=== PATIENT | male | born 1990 | race Caucasian/White ===

== ENCOUNTER 2017-05-05 23:00 | Inpatient (IN) | payer OTHER ==
--- NOTE | ~2017-05-05 | PN ---
Unit #: [id number] #: [id number] Patient: ELIUD RIOS [id number] [facility] [address] [place] [address] [id number] MR#: [id number] NAME: ELIUD RIOS ROOM: P122 Age: 26 Sex: M Admission Date: 05/06/2017 : 1990 Attending Physician: Ivette Eddy M.D. Admitting Physician: Ivette Eddy M.D. Primary Care Physician: Primary Care Physician Kiana NAVARRO NOTES DATE OF SERVICE 05/07/2017 DISCUSSION Mr. Rios is a 26-year-old white male who was seen today. Chart was reviewed and case was discussed with the staff. He has been anxious, withdrawn, unkempt, disheveled, disorganized, and rather seclusive to himself. Meanwhile, he has been taking the medications and tolerating them fairly well with no reported side effects. He denies any suicidal or homicidal ideations and as such we will maintain him on current treatment protocol. We will monitor response and make further adjustments as needed. Dictated by... Lillie Boogie/se TD: 05/07/2017 09:30 JOB #: [id number] CLEMENTE NAVARRO NOTES Page 1 of 1 X Ivette Eddy MD PROGRESS NOTE
--- NOTE | ~2017-05-05 | DS ---
Unit #: [id number] #: [id number] Patient: [facility] [id number] [facility] [address] [place] [id number] I MR#: [id number] NAME: ELIUD RIOS ROOM: [facility] Age: 26 Sex: M Admission Date: 05/06/2017 : 1990 Discharge Date: 05/12/2017 Attending Physician: Ivette Eddy M.D. Primary Care Physician: Primary Care Physician No DISCHARGE SUMMARY IDENTIFYING DATA Mr. Dacosta is a 26-year-old single white male with history of chronic mental illness, who is very well known to us from previous multiple encounters and was transferred to us from [facility] where he was brought in by EMS. DISCHARGE DIAGNOSES Psychiatric: Chronic paranoid schizophrenia. Medical: None. Stressors: Moderate psychosocial stressors. HISTORY OF PRESENT ILLNESS Please see initial psychiatric evaluation for details. PAST PSYCHIATRIC HISTORY Please see initial psychiatric evaluation for details. PAST MEDICAL HISTORY Please see initial psychiatric evaluation for details. HOSPITAL COURSE The patient was admitted to the adult psychiatric unit at [facility] and was oriented to the hospital environment. Routine p.r.n. medications were initiated, and he was started back on his home medication including his Depakote and Seroquel. However, he has history of extreme poor compliance with outpatient followup with medication leading to rapid decompensation and multiple hospitalizations and as such, long-acting injectable antipsychotic was thought as an option and he was started on Haldol Decanoate 100 mg intramuscular every 30 days and Depakote and Seroquel were maintained and he was closely monitored. He was taking the medications regularly and was tolerating them fairly well and was able to show a decent and therapeutic response with no further psychosis, agitation, or aggression. The patient was not seen to be danger to self or anyone else, and as such, it was decided that he will be discharged home and will continue treatment on an outpatient basis. DISCHARGE MEDICATIONS Seroquel 400 mg at bedtime for psychosis, Depakote 1000 mg at bedtime for psychosis, and Haldol Decanoate 100 mg intramuscular every 30 days. DISCHARGE CONDITION Stable. PROGNOSIS Unit #: [id number] #: [id number] Patient: ELIUD RISO [facility]. Dictated by... Lillie Boogie/maximus TD: 05/12/2017 07:07 JOB #: [id number] DISCHARGE SUMMARY Page 1 of 1 X Ivette Eddy MD DISCHARGE SUMMARY
--- NOTE | ~2017-05-05 | PA ---
Unit #: [id number] #: [id number] Patient: ELIUD RIOS [id number] [facility] [address] [place] [address] [id number] I MR#: [id number] NAME: ELIUD RIOS ROOM: P122 Age: 26 Sex: M Admission Date: 05/06/2017 : 1990 Date of Assessment: 05/06/2017 Attending Physician: Ivette Eddy M.D. Admitting Physician: Ivette Eddy M.D. Primary Care Physician: Primary Care Physician No PSYCHIATRIC ASSESSMENT DATE OF SERVICE 05/06/2017. IDENTIFYING DATA Mr. Croft is a 26-year-old single white male with history of chronic mental illness, who is a resident of [place], [place], and was transferred to us from [facility] where he was brought in by EMS. CHIEF COMPLAINT "I'm seeing myself from an out-of-body experience dying over and over again." HISTORY OF PRESENT ILLNESS Mr. Croft is a 26-year-old white male with history of schizophrenia, who was brought to the hospital emergency room via EMS in an acute psychotic state and was unable to fully participate in the initial assessment and was talking about various subjects that were not related and reported that he was seeing himself from an out-of-body experience dying over and over again and stated that he is having suicidal ideations and mentioned a chainsaw, but it was not clear to the assessment staff as he was referring to clinician asked for clarification, but he moved onto another subject and presented to the emergency department alone without any family and reports not taking his medications for the past 2 weeks and reports increasing depression, anxiety, irritability, restlessness, feelings of hopelessness, helplessness, suicidal ideation with acute psychosis and as such, recommendation for inpatient level of care for safety and stabilization was made and the patient was transferred to us. SUBSTANCE ABUSE HISTORY The patient denies any alcohol or drug abuse. PAST PSYCHIATRIC HISTORY The patient has had history of multiple inpatient psychiatric hospitalizations at [facility] and different facilities and has been diagnosed and treated for chronic paranoid schizophrenia and has history of poor compliance with outpatient treatment recommendation and once again has not been active in any treatment program, is not seeing a psychiatrist, and is not taking any psychotropic medications. PAST MEDICAL HISTORY The patient's medical history is insignificant. Unit #: [id number] #: [id number] Patient: ELIUD RIOS ALLERGIES No known medication allergies. PERSONAL AND SOCIAL HISTORY A 26-year-old white male, who reports that he is single, unemployed, and essentially homeless and has poor social support system. MENTAL STATUS EXAMINATION Young white male who was casually dressed with fair personal hygiene, appears to be in no acute distress or discomfort. He was awake and alert on interaction with intact orientation to time, place, and person. His mood was anxious and depressed with a congruent affect. His speech was slow and tangential. His thought processes were disorganized with some looseness of associations and flight of ideas and paranoid ideations. His insight and judgment remain significantly impaired. DIAGNOSTIC IMPRESSION Psychiatric: Chronic paranoid schizophrenia. Medical: None. Stressors: Moderate psychosocial stressors. TREATMENT PLAN 1. The patient has presented with history of mood disorder and chronic mental illness and has been decompensating and will need inpatient hospitalization for safety and stabilization. We will start him back on his home medications. We will adjust the medications and monitor response. 2. Supportive therapy was provided to the patient. 3. Safe, structured, and nourishing environment will be provided. ESTIMATED LENGTH OF STAY 5 to 7 days. ABILITY TO HELP SELF Limited. WILLINGNESS TO HELP SELF The patient appears to be willing to help self. STRENGTHS 1. Communicative. 2. Cooperative. PROBLEMS 1. Chronic dysphoric symptoms. 2. Poor social support system. DISCHARGE CRITERIA This will be contingent upon the patient's ability to show resolution of his depression and psychosis as well as his ability to stay safe to himself, particularly after discharge from the hospital. Dictated by... Ivette Eddy M.D. DRAA/mxaimus TD: 05/06/2017 22:59 Unit #: [id number] #: [id number] Patient: ELIUD RIOS JOB #: [id number] PSYCHIATRIC ASSESSMENT Page 1 of 1 X Ivette Eddy MD PSYCHIATRIC ASSESSMENT
--- NOTE | ~2017-05-05 | HP ---
Unit #: [id number] #: [id number] Patient: ELIUD RIOS [id number] [place] [address] [id number] I MR#: [id number] NAME: ELIUD RIOS ROOM: P122 Age: 26 Sex: M Admission Date: 05/06/2017 : 1990 Attending Physician: Ivette Eddy M.D. Admitting Physician: Ivette Eddy M.D. Primary Care Physician: Primary Care Physician No HISTORY AND PHYSICAL HISTORY OF PRESENT ILLNESS Eliud is a 26 year old admitted to [address] [place] [address] with psychotic behavior. He has had other admissions to this facility. PAST MEDICAL HISTORY Nothing significant. PAST SURGICAL HISTORY Nothing reported. ALLERGIES Haldol SOCIAL HISTORY He denies cigarettes, alcohol and illicit drug use. FAMILY HISTORY Medically noncontributory. REVIEW OF SYSTEMS CONSTITUTIONAL: No fever or chills. HEENT: Denies any sore throat, ear pain or runny nose. CARDIOVASCULAR: Denies chest pain, irregular heart rhythm or palpitations. CHEST: Denies shortness of breath or cough. No hemoptysis. GASTROINTESTINAL: Denies nausea, vomiting, diarrhea or chronic constipation. ENDOCRINE: Denies history of increased thirst or urination. No recent significant weight loss or gain. GENITOURINARY: Denies dysuria, frequency, or hematuria. SKIN: Denies any rashes. HEMATOLOGIC: Denies history of increased bleeding or bruising. MUSCULOSKELETAL: Denies any hot, swollen joints. No generalized muscle pain. NEUROLOGIC: Denies problems with vision or speech. No frequent, severe headaches. No numbness, tingling or weakness in any extremities. Denies loss of bladder or bowel control. CURRENT MEDICATIONS 1. Seroquel 400 mg q.h.s. 2. Haldol 3. Decanoate 100 mg IM q 30 days 4. Nicotine patch 21 mg q day Unit #: [id number] #: [id number] Patient: ELIUD RIOS 5. Depakote 100 mg q day 6. Vistaril 50 mg q 6 hours p.r.n. 7. Desyrel p.r.n. 8. Milk of Magnesia p.r.n. 9. Maalox p.r.n. 10. Tylenol p.r.n. 11. [place] 600 mg q.a.m., 750 mg q.h.s. PHYSICAL EXAMINATION GENERAL: Alert, thin, in no apparent distress. VITAL SIGNS: Blood pressure 124/82, heart rate 80, respirations 16, temperature 98.6. WEIGHT: 130 pounds. HEIGHT: 5'7". SKIN: Warm and dry without rash or lesion. HEENT: Normocephalic. TMs not viewed. Oral and nasal passages clear. Conjunctivae clear. Pupils equal, round and reactive to light and accommodation. Extraocular movements intact. NECK: Supple without lymphadenopathy or thyromegaly. HEART: Regular rate and rhythm without murmur. LUNGS: Clear. ABDOMEN: Soft, nontender. : Not done. EXTREMITIES: No evidence of cyanosis, clubbing or edema. Moves all extremities without focal deficit. NEUROLOGICAL: Grossly within normal limits. Cranial Nerves: II: Visual macdonald are intact. III, IV AND : Extraocular movements are intact. Pupils are equal, round and reactive to light. V: Facial sensation is grossly normal. VII: Facial movements and expression are normal. VIII: Auditory acuity grossly intact. IX, X: Uvula is midline. Phonation is normal. XI: Patient shrugs shoulders and turns head normally. XII: Tongue protrudes in the midline. Sensory and Motor Function: Sensory and motor sensation is grossly normal. Motor: moves all extremities well. Coordination: Gait is normal. Deep Tendon Reflexes: Intact. IMPRESSION Psychiatric admission. RECOMMENDATIONS PSYCHIATRIC: Per psychiatrist. MEDICAL: I see no contraindications to participating in facility's activities. MEDICAL PROGNOSIS Good. MEDICAL CONDITION Stable. Dictated by... Vanessa Victor P.A.-C. for Unit #: [id number] #: [id number] Patient: ELIUD RIOS Lillie Moreira/lawanda TD: 05/06/2017 21:22 JOB #: [id number] HISTORY AND PHYSICAL Page 1 of 1 X Vanessa Victor HISTORY AND PHYSICAL
--- NOTE | ~2017-05-05 | PN ---
Unit #: [id number] #: [id number] Patient: ELIUD HAM [id number] [facility] [address] [place] [address] [id number] I MR#: [id number] NAME: ELIUD HAM ROOM: P122 Age: 26 Sex: M Admission Date: 05/06/2017 : 1990 Attending Physician: Ivette Eddy M.D. Admitting Physician: Ivette Eddy M.D. Primary Care Physician: Primary Care Physician Kiana CORNEJO PROGRESS NOTES DATE 05/08/2017 DISCUSSION Ms. Ham is a 26-year-old white male with mood disorder and psychosis who was seen today and chart was reviewed and case was discussed with the staff. He has been anxious, withdrawn and rather seclusive to himself. Meanwhile, he has been cooperative with treatment recommendations and has been taking medications and tolerating them fairly well with no reported side effects. MENTAL STATUS EXAMINATION Young white male who was casually dressed with fair personal hygiene and appears to be in no acute distress or discomfort. He was awake and alert with impaired attention and concentration. His mood was anxious with congruent affect. He denies any suicidal or homicidal ideations. His thought processes were disorganized with some looseness of associations and paranoid ideations. His insight and judgement remains significantly impaired. TREATMENT PLAN 1. Will continue him on his current treatment protocol. Will monitor his response and make further adjustments as needed. 2. Will continue to follow up. Dictated by... Lillie Boogie/brady TD: 05/08/2017 22:01 JOB #: [id number] Unit #: [id number] #: [id number] Patient: ELIUD HAM PROGRESS NOTES Page 1 of 1 X Ivette Eddy MD PROGRESS NOTE
--- NOTE | ~2017-05-05 | PN ---
Unit #: [id number] #: [id number] Patient: ELIUD HAM [id number] [facility] [address] [place] [address] [id number] I MR#: [id number] NAME: ELIUD HAM ROOM: P122 Age: 26 Sex: M Admission Date: 05/06/2017 : 1990 Attending Physician: Ivette Eddy M.D. Admitting Physician: Ivette Eddy M.D. Primary Care Physician: Primary Care Physician Kiana CORNEJO PROGRESS NOTES DATE 05/11/2017 DISCUSSION Mr. Ham is a 26-year-old, white male with mood disorder who was seen today and chart was reviewed and case was discussed with the staff. He has been anxious, withdrawn and rather seclusive to himself. Meanwhile, he has been cooperative with treatment recommendations. He has been taking medications and tolerating them fairly well with no reported side effects. MENTAL STATUS EXAM Young white male who was casually dressed with fair personal hygiene, appears to be in no acute distress or discomfort. He was awake and alert on interaction with intact orientation. His mood was anxious with congruent affect. He denies any suicidal or homicidal ideation. His insight and judgement remains slightly impaired. TREATMENT PLAN 1. We will continue him on his current medications and treatment protocol. We will monitor his response to the medication and make further adjustments as needed. 2. We will continue to follow up. Dictated by... Lillie Boogie/lawanda TD: 05/12/2017 04:03 JOB #: [id number] Unit #: [id number] #: [id number] Patient: ELIUD HAM PROGRESS NOTES Page 1 of 1 X Ivette Eddy MD X PROGRESS NOTE
--- NOTE | ~2017-05-05 | PN ---
Unit #: [id number] #: [id number] Patient: ELIUD HAM [id number] [facility] [address] [place] [address] [id number] I MR#: [id number] NAME: ELIUD HAM ROOM: P122 Age: 26 Sex: M Admission Date: 05/06/2017 : 1990 Attending Physician: Ivette Eddy M.D. Admitting Physician: Ivette Eddy M.D. Primary Care Physician: Primary Care Physician Kiana CORNEJO PROGRESS NOTES DATE May 09, 2017 DISCUSSION Mr. Ham is a 26-year-old white male, with mood disorder and psychosis, who was seen today and chart was reviewed and the case was discussed with the staff. He remains anxious, withdrawn, unkept, disheveled, disorganized, and seclusive to himself, with blunted affect and minimal interaction. Meanwhile, he has been taking the medications and tolerating them fairly well with no reported side effects. MENTAL STATUS EXAMINATION Young white male, who was casually dressed with fair personal hygiene and appears to be in no acute distress or discomfort. He was awake and alert with impaired attention and concentration. His mood is anxious with a congruent affect. His speech is slow and tangential. His thought processes are disorganized with some looseness of associations and flight of ideas, and paranoid ideations. His insight and judgment remain significantly impaired. TREATMENT PLAN 1. We will continue him on his current medications and treatment protocol, and will monitor his response to the medications, and make further adjustments as needed. 2. We will continue to followup. Dictated by... Lillie Boogie/samuel TD: 05/10/2017 10:44 JOB #: [id number] Unit #: [id number] #: [id number] Patient: ELIUD HAM PROGRESS NOTES Page 1 of 1 X Ivette Eddy MD PROGRESS NOTE
--- NOTE | ~2017-05-05 | PN ---
Unit #: [id number] #: [id number] Patient: ELIUD HAM [id number] [facility] [address] [place] [address] [id number] MR#: [id number] NAME: ELIUD HAM ROOM: P122 Age: 26 Sex: M Admission Date: 05/06/2017 : 1990 Attending Physician: Ivette Eddy M.D. Admitting Physician: Ivette Eddy M.D. Primary Care Physician: Primary Care Physician Kiana CORNEJO PROGRESS NOTES DATE 05/10/2017 DISCUSSION Mr. Ham is a 26-year-old, white male who was seen today and chart was reviewed and case was discussed with the staff. He has been anxious, withdrawn and rather seclusive to himself. Meanwhile, he has been cooperative with treatment recommendations. He has been taking medications and tolerating them fairly well with no reported side effects. MENTAL STATUS EXAM Young white male who was casually dressed with fair personal hygiene, appears to be in no acute distress or discomfort. He was awake and alert on interaction with intact orientation. His mood was anxious with congruent affect. He denies any suicidal or homicidal ideation. His insight and judgement remains slightly impaired. TREATMENT PLAN 1. We will continue him on his current medications and treatment protocol. We will monitor his response to the medication and make further adjustments as needed. 2. We will continue to follow up. Dictated by... Lillie Boogie/lawanda TD: 05/11/2017 05:08 JOB #: [id number] Unit #: [id number] #: [id number] Patient: ELIUD HAM PROGRESS NOTES Page 1 of 1 X Ivette Eddy MD X PROGRESS NOTE
[~2017-05-05 23:00] MED LIST: AMITRYPTYLINE PO; BACITRACIN30 GM TOP; FLEXERIL PO; VICODIN 5/500 T1 TAB PO
== END 2017-05-12 11:00 | disposition home or self-care (01) | DRG 885 ==
LOC: P1S 05-06 02:52 → EDBD 05-12 11:00
DX: F20.0 Paranoid schizophrenia (principal)
CPT/HCPCS: J1631

== ENCOUNTER 2017-05-13 18:00 | Inpatient (IN) | payer OTHER ==
--- NOTE | ~2017-05-13 | PA ---
Unit #: [id number] #: [id number] Patient: [facility]AM [id number] [facility] [address] [place] [address] [id number] I MR#: [id number] NAME: ELIUD HAM ROOM: P121 Age: 26 Sex: M Admission Date: 05/13/2017 : 1990 Date of Assessment: 05/14/2017 Attending Physician: Ivette Eddy M.D. Admitting Physician: Ivette Eddy M.D. Primary Care Physician: Primary Care Physician No PSYCHIATRIC ASSESSMENT IDENTIFYING DATA Mr. Ham is a 26-year-old single, homeless white male, who is a resident of [place], [place], and was self-referred to the hospital. CHIEF COMPLAINT Suicidal ideations HISTORY OF PRESENT ILLNESS Mr. Ham is a 26-year-old white male with history of schizophrenia, who was just under my care and decided to leave against medical advice a couple of days ago. However, he was given intramuscular injection of Haldol Decanoate during that hospitalization, but he left the hospital and has no support system and had been on the streets and now brought himself back reporting suicidal ideation, had been running out in front of the cars trying to kill himself. He reports he feels stressed and depressed and he feels hopeless and helpless due to his mother's and also reports that his mother killed herself and and was seen to be acutely psychotic with bizarre behavior, looseness of association, and was noted to be unkempt, disheveled, disorganized, voicing suicidal ideations, and was trying to run in front of the cars, and as such, recommendation for inpatient level of care for safety and stabilization was made, and the patient was transferred to us. SUBSTANCE ABUSE HISTORY The patient denies any alcohol or drug abuse. PAST PSYCHIATRIC HISTORY The patient has a history of numerous [facility] other [facility] and has been diagnosed and treated for schizophrenia. Review of the medical records indicates that he is supposed to be on Haldol Decanoate, Depakote, and Seroquel, but has history of poor compliance with all forms of treatment including outpatient followup as well as with medications. PAST MEDICAL HISTORY The patient's medical history is insignificant. ALLERGIES No known medication allergies. PERSONAL AND SOCIAL HISTORY A 26-year-old white male, who reports that he is single, unemployed, and Unit #: [id number] #: [id number] Patient: ELIUD HAM homeless, and has poor social support system. MENTAL STATUS EXAMINATION Young white male, who was casually dressed with marginal personal hygiene, appears to be in no acute distress or discomfort. He was awake and alert on interaction with intact orientation. His mood was anxious and depressed with congruent affect. His speech was slow and restricted in content. His thought processes were disorganized with some looseness of associations and flight of ideas and paranoid ideations and suicidal ideations. His insight and judgment remain significantly impaired. DIAGNOSTIC IMPRESSION Psychiatric: Chronic paranoid schizophrenia. Medical: None. Stressors: Moderate psychosocial stressors. TREATMENT PLAN 1. The patient has presented with history of mood disorder and has been decompensating and will need inpatient hospitalization for safety and stabilization. We will start him back on his home medications. We will adjust the medications and monitor response. 2. Supportive therapy was provided to the patient. 3. Safe, structured, and nourishing environment will be reported. ESTIMATED LENGTH OF STAY 4 to 5 days. ABILITY TO HELP SELF Limited. WILLINGNESS TO HELP SELF The patient appears to be willing to help self. STRENGTHS 1. Communicative. 2. Cooperative. PROBLEMS 1. Chronic dysphoric symptoms. 2. Poor social support system. DISCHARGE CRITERIA This will be contingent upon the patient's ability to show resolution of his depression and anxiety and psychosis as well as his ability to stay safe to himself, particularly after discharge from the hospital. Dictated by... Ivette Eddy M.D. DARA/maximus TD: 05/14/2017 08:31 JOB #: [id number] Unit #: [id number] #: [id number] Patient: ELIUD HAM PSYCHIATRIC ASSESSMENT Page 1 of 1 X Ivette Eddy MD PSYCHIATRIC ASSESSMENT
--- NOTE | ~2017-05-13 | DS ---
Unit #: [id number] #: [id number] Patient: ELIUD HAM [id number] [facility] [address] [place] [address] [id number] MR#: [id number] NAME: ELIUD HAM ROOM: P121 Age: 26 Sex: M Admission Date: 05/13/2017 : 1990 Discharge Date: 05/18/2017 Attending Physician: Ivette Eddy M.D. Primary Care Physician: Primary Care Physician No DISCHARGE SUMMARY ADDENDUM Mr. Ham was scheduled to be discharged yesterday; however, he did not have any place to go and discharge planning was canceled for a day as [employer] were still trying to secure placement; followed by which, it was decided that he will be discharged to his residential facility and will continue treatment on an outpatient basis. DISCHARGE CONDITION Stable. PROGNOSIS Fair. Dictated by... Lillie Boogie/maximus TD: 05/18/2017 19:19 JOB #: [id number] DISCHARGE SUMMARY Page 1 of 1 X Ivette Eddy MD X DISCHARGE SUMMARY
--- NOTE | ~2017-05-13 | HP ---
Unit #: [id number] #: [id number] Patient: ELIUD RIOS [id number] [place] [address] [id number] I MR#: [id number] NAME: ELIUD RIOS ROOM: P121 Age: 26 Sex: M Admission Date: 05/13/2017 : 1990 Attending Physician: Ivette Eddy M.D. Admitting Physician: Ivette Eddy M.D. Primary Care Physician: Primary Care Physician No HISTORY AND PHYSICAL Eliud is a 26-year-old male admitted on 05/13/[address] [place] [address] for psychosis. He has recent admissions for the same, most recently on 05/06/2017. I reviewed the history and physical from that admission and there are no changes. Dictated by... Yuriy Pickard/brady TD: 05/14/2017 22:19 JOB #: [id number] HISTORY AND PHYSICAL Page 1 of 1 X ANA LUISA CEDENO APRN HISTORY AND PHYSICAL
--- NOTE | ~2017-05-13 | DS ---
Unit #: [id number] #: [id number] [facility]: [facility] [id number] [facility] [address] [place] [address] [id number] I MR#: [id number] NAME: ELIUD RIOS ROOM: [facility] Age: 26 Sex: M Admission Date: 05/13/2017 : 1990 Discharge Date: Attending Physician: Ivette Eddy M.D. Primary Care Physician: Primary Care Physician No DISCHARGE SUMMARY IDENTIFYING DATA Mr. Rios is a 26-year-old single white male, who is a resident of [place], [place], and was self-referred to the hospital. DISCHARGE DIAGNOSES Psychiatric: Chronic paranoid schizophrenia. Medical: None. Stressors: Moderate psychosocial stressors. HISTORY OF PRESENT ILLNESS Please see initial psychiatric evaluation for details. PAST PSYCHIATRIC HISTORY Please see initial psychiatric evaluation for details. PAST MEDICAL HISTORY Please see initial psychiatric evaluation for details. HOSPITAL COURSE The patient was admitted to the adult psychiatric unit at [facility] and was oriented to the hospital environment. Routine p.r.n. medications were initiated, and he was started back on his home medications. Medications were adjusted and was closely monitored. He was taking medications regularly. He is tolerating them fairly well and as such, it was decided that he will be discharged home and will continue treatment on an outpatient basis. DISCHARGE CONDITION Stable. PROGNOSIS Fair. Dictated by... Lillie Boogie/maximus TD: 05/17/2017 13:08 JOB #: [id number] Unit #: [id number] #: [id number] Patient: ELIUD RIOS DISCHARGE SUMMARY Page 1 of 1 X Ivette Eddy MD X DISCHARGE SUMMARY
--- NOTE | ~2017-05-13 | PN ---
Unit #: [id number] #: [id number] Patient: ELIUD HAM [id number] [facility] [address] [place] [address] [id number] MR#: [id number] NAME: ELIUD HAM ROOM: P121 Age: 26 Sex: M Admission Date: 05/13/2017 : 1990 Attending Physician: Ivette Eddy M.D. Admitting Physician: Ivette Eddy M.D. Primary Care Physician: Primary Care Physician Kiana CORNEJO PROGRESS NOTES DATE 05/16/2017 DISCUSSION Mr. Ham is a 26-year-old, white male who was seen today and chart was reviewed and case was discussed with the staff. He has been anxious, withdrawn, rather seclusive to himself. Meanwhile, he has been cooperative with treatment recommendations. He has been taking the medication and tolerating them fairly well with no reported side effects. MENTAL STATUS EXAM Young white male who was casually dressed with fair personal hygiene, appears to be in no acute distress or discomfort. He was awake and alert with impaired attention and concentration. His mood is anxious with congruent affect. He denies any suicidal or homicidal ideation. His insight and judgement remains slightly impaired. TREATMENT PLAN 1. We will continue him on his current treatment protocol. We will monitor his response to the medication and make further adjustments as needed. 2. We will continue to follow up. Dictated by... Lillie Boogie/lawanda TD: 05/18/2017 03:19 JOB #: [id number] Unit #: [id number] #: [id number] Patient: ELIUD HAM PROGRESS NOTES Page 1 of 1 X Ivette Eddy MD PROGRESS NOTE
--- NOTE | ~2017-05-13 | PN ---
Unit #: [id number] #: [id number] Patient: ELIUD RIOS [id number] [facility] [address] [place] [address] [id number] MR#: [id number] NAME: ELIUD RIOS ROOM: P121 Age: 26 Sex: M Admission Date: 05/13/2017 : 1990 Attending Physician: Ivette Eddy M.D. Admitting Physician: Ivette Eddy M.D. Primary Care Physician: Primary Care Physician Kiana NAVARRO NOTES DATE OF SERVICE: 05/15/2017 SUBJECTIVE Mr. Rios is a 26-year-old white male who was seen today and chart was reviewed and the case was discussed with the staff. He has been anxious, withdrawn, and rather seclusive to himself. Meanwhile, he has been cooperative with treatment recommendations, and has been taking the medications and tolerating them fairly well with no reported side effects. MENTAL STATUS EXAMINATION Young white male who was casually dressed with fair personal hygiene, appears to be in no acute distress or discomfort. He was awake and alert on interaction with intact orientation. His mood was anxious with a congruent affect. His speech was slow and restricted in content. He reports having suicidal ideations and homicidal ideations, and also denies any auditory or visual hallucinations. His insight and judgment remain significantly impaired. TREATMENT PLAN 1. We will continue him on his current medications and treatment protocol. We will monitor his response to medications and make further adjustments as needed. 2. We will continue to follow up. Dictated by... Lillie Boogie/maximus TD: 05/15/2017 17:00 JOB #: [id number] Unit #: [id number] #: [id number] Patient: ELIUD RIOS PROGRESS NOTES Page 1 of 1 X Ivette Eddy MD PROGRESS NOTE
== END 2017-05-18 09:30 | disposition home or self-care (01) | DRG 885 ==
LOC: P1S 21:24 → EDBD 05-18 09:30
DX: F20.0 Paranoid schizophrenia (principal)
CPT/HCPCS: 80164; 82140

== ENCOUNTER 2017-05-21 23:00 | Inpatient (IN) | payer OTHER ==
[~2017-05-21] VITALS: Ht 170.2 cm; Wt 68.0 kg
--- NOTE | ~2017-05-21 | PN ---
Unit #: [id number] #: [id number] Patient: ELIUD CROFT [id number] [facility] [address] [place] [address] [id number] I MR#: [id number] NAME: ELIUD CROFT ROOM: P255 Age: 25 Sex: M Admission Date: 05/22/2017 : 07/14/1991 Attending Physician: Ivette Eddy M.D. Admitting Physician: Ivette Eddy M.D. Primary Care Physician: Generic Doctor Not In System myVBO PROGRESS NOTES DATE OF SERVICE 05/24/2017 DISCUSSION Mr. Croft is a 25-year-old white male with mood disorder and psychosis who was seen today. Chart was reviewed and case was discussed with the staff. He was anxious, withdrawn, depressed, seclusive to himself. Meanwhile, he has been taking the medications and tolerating them fairly well with no reported side effects. MENTAL STATUS EXAMINATION Young white male who is casually dressed with marginal personal hygiene, appears to be in no acute distress or discomfort. The patient was awake and alert with impaired attention and concentration. His mood is anxious with congruent affect. His speech is slow and restricted in content. His insight and judgment remain significantly impaired. TREATMENT PLAN 1. We will continue him on his current medications and treatment protocol. We will monitor his response to the medications and make further adjustments as needed. 2. We will continue to follow up. Dictated by... Ivette Eddy M.D. IAA/bzg TD: 05/25/2017 06:59 JOB #: [id number] [facility] PROGRESS NOTES Page 1 of 1 X Ivette Eddy MD X PROGRESS NOTE
--- NOTE | ~2017-05-21 | HP ---
Unit #: [id number] #: [id number] Patient: ELIUD PERRY [id number] [place] [address] [id number] I MR#: [id number] NAME: ELIUD PERRY ROOM: P255 Age: 25 Sex: M Admission Date: 05/22/2017 : 07/14/1991 Attending Physician: Ivette Eddy M.D. Admitting Physician: Ivette Eddy M.D. HISTORY AND PHYSICAL REASON FOR ADMISSION Acute suicidal ideation. HISTORY OF PRESENT ILLNESS The patient is a 25-year-old male with expressed feelings of hopelessness, helplessness, and positive suicidal ideation. He wanted to kill himself. He is currently homeless, who was admitted for the same. PAST MEDICAL HISTORY Prior history of suicidal ideation in the past. The patient is homeless. HOME MEDICATIONS Seroquel, questionable compliance. SOCIAL HISTORY Negative alcohol, tobacco, or illicit drug use. Denies all substance abuse. REVIEW OF SYSTEMS Unkempt appearance, anxious, depression noted. Agitation noted. Otherwise as per HPI. PHYSICAL EXAMINATION VITAL SIGNS: Temperature 98, blood pressure 123/64, respiratory rate 18, pulse 99. GENERAL: Awake, alert, oriented to person, place, and time. Well built, well nourished. Does not appear to be in any acute distress. HEAD: Atraumatic. Normocephalic. EYES: Bilateral extraocular muscles are normal. Pupils equal, reactive to light and accommodation. Sclerae are normal. No jaundice. NECK: Neck is supple. No neck rigidity. No thyromegaly. No carotid bruit. No JVD. Oral mucosa is moist. CHEST: Bilateral vesicular breathing. Clear to auscultation. No basilar rales. CARDIOVASCULAR: S1 and S2 normal. No murmur, no gallop, no rub. ABDOMEN: Soft, nontender. No organomegaly. Bowel sounds are normal. No hernia, no masses, no rebound, no guarding. EXTREMITIES: No pitting edema. No calf tenderness. Extremity pulses, including dorsalis pedis, have good volume. BACK: Normal spine curvature. No spine tenderness. No costovertebral angle tenderness. PHARMACIST IN CHARGE: Cranial nerves normal bilaterally. Motor function bilaterally symmetric and normal. Sensory system normal. Unit #: [id number] #: [id number] Patient: ELIUD PERRY SKIN: Warm and dry. INITIAL IMPRESSION 1. Acute psychiatric inpatient admission. 2. Suicidal ideation. PLAN As per psychiatrist, medical condition stable, medical prognosis fair. There are no medical contraindications to the patient participating in activities while here at [facility]. Dictated by... Lillie Moreira/maximus TD: 05/22/2017 17:22 JOB #: [id number] HISTORY AND PHYSICAL Page 1 of 1 X Sosa Knight MD X HISTORY AND PHYSICAL
--- NOTE | ~2017-05-21 | DS ---
Unit #: [id number] #: [id number] [facility]: [facility] [id number] [facility] [address] [place] [address] [id number] I MR#: [id number] NAME: ELIUD CROFT ROOM: [facility] Age: 25 Sex: M Admission Date: 05/22/2017 : 07/14/1991 Discharge Date: 05/26/2017 Attending Physician: Ivette Eddy M.D. Primary Care Physician: Generic Doctor Not In System DISCHARGE SUMMARY IDENTIFYING DATA Mr. Croft is a 25-year-old single white male who has a history of chronic mental illness was known to me from previous encounter was recently discharged from my care and was self-referred back to the hospital. DISCHARGE DIAGNOSIS PSYCHIATRIC: Schizoaffective disorder, bipolar type, most recent episode depressed recurrent, moderate, without psychotic features. MEDICAL None. STRESSORS Moderate psychosocial stressors. HISTORY OF PRESENT ILLNESS Please see initial psychiatric assessment. PAST PSYCHIATRIC HISTORY Please see initial psychiatric assessment. PAST MEDICAL HISTORY Please see initial psychiatric assessment. HOSPITAL COURSE The [facility] and was oriented to the hospital environment team. Routine p.r.n. medications were initiated, and he was started back on his home medications and medications were adjusted and he was closely monitored. He was taking the medications regularly and is tolerating them very well and is able to show a recent therapeutic response and as such it was decided that he will be discharged home and continue treatment on outpatient basis. DISCHARGE MEDICATIONS 1. Depakote ER 500 mg twice a day for bipolar. 2. Seroquel 400 mg at bedtime for psychosis. 3. Trazodone 200 mg at bedtime for sleep. DISCHARGE CONDITION Unit #: [id number] #: [id number] Patient: ELIUD CROFT Stable. PROGNOSIS Fair. Dictated by... Lillie Boogie/lawanda TD: 05/27/2017 05:11 JOB #: [id number] DISCHARGE SUMMARY Page 1 of 1 X Ivette Eddy MD X DISCHARGE SUMMARY
--- NOTE | ~2017-05-21 | PA ---
Unit #: [id number] #: [id number] Patient: ELIUD CROFT [id number] [facility] [address] [place] [address] [id number] I MR#: [id number] NAME: ELIUD CROFT ROOM: P255 Age: 25 Sex: M Admission Date: 05/22/2017 : 07/14/1991 Date of Assessment: Attending Physician: Ivette Eddy M.D. Admitting Physician: Ivette Eddy M.D. PSYCHIATRIC ASSESSMENT DATE OF SERVICE 05/22/2017. IDENTIFYING DATA Mr. Croft is a 25-year-old single white male with history of chronic mental illness, who is very well known to me from previous encounter. He is a resident of [place], [place] and was recently discharged from my care and brought himself back to the hospital. CHIEF COMPLAINT "Suicidal ideations." HISTORY OF PRESENT ILLNESS Mr. Croft is a 25-year-old white male, who was recently discharged from my care and brought himself back to the hospital reporting increasing depression and suicidal ideations. He reports that he has been running out in front of the cars trying to kill himself, though he has never attempted suicide and usually his story is pretty much the same as he never follows up with any treatment recommendation and does not even bother to get his prescription filled after getting out of the hospital. He never shows up for the outpatient program, and when he comes to the unit, he just eats and sleeps and does not participate in any treatment related activities and does not show any motivation towards investment in the treatment, and states that he is stressed and depressed and feels hopeless and helpless due to his mother's and reports that his mother killed herself. He stated that and has been exhibiting bizarre behavior and was seemed to be danger to self and therefore recommendation for inpatient level of care for safety and stabilization was made and the patient was transferred to us. SUBSTANCE ABUSE HISTORY The patient denies any alcohol or drug abuse. PAST PSYCHIATRIC HISTORY The patient has had a history of multiple inpatient psychiatric hospitalizations at [facility] and other facilities, and has a history of poor compliance with all form of outpatient treatment recommendations including medication management. PAST MEDICAL HISTORY The patient's medical history is insignificant. ALLERGIES Unit #: [id number] #: [id number] Patient: ELIUD CROFT. PERSONAL AND SOCIAL HISTORY A 25-year-old white male, who reports that he is single, unemployed, and essentially homeless and has poor social support system. MENTAL STATUS EXAMINATION Young white male, who was casually dressed with fair personal hygiene, appears to be in no acute distress or discomfort. He was awake and alert on interaction with intact orientation to time, place, and person. His mood was anxious and depressed with a congruent affect. His speech was slow and restricted in content. His thought processes were disorganized with some looseness of associations and suicidal ideations and paranoid ideations. His insight and judgment remain significantly impaired. DIAGNOSTIC IMPRESSION Psychiatric: Schizoaffective disorder, bipolar type, most recent episode depressed, recurrent, moderate, with psychosis. Medical: None. Stressors: Moderate psychosocial stressors. TREATMENT PLAN 1. The patient has presented with history of mood disorder and has been decompensating, and will need inpatient hospitalization for safety and stabilization. We will start him back on his home medications. We will adjust the medications and monitor response. 2. Supportive therapy was provided to the patient. 3. Safe, structured, and nourishing environment will be provided. ESTIMATED LENGTH OF STAY 5 to 7 days. ABILITY TO HELP SELF Limited. WILLINGNESS TO HELP SELF The patient appears to be willing to help self. STRENGTHS 1. Communicative. 2. Cooperative. PROBLEMS 1. Chronic dysphoric symptoms. 2. Poor social support system. DISCHARGE CRITERIA This will be contingent upon the patient's ability to show resolution of his depression and anxiety, and his ability to stay safe to himself, particularly after discharge from the hospital. Dictated by... Lillie Boogie/maximus TD: 05/22/2017 16:16 Unit #: [id number] #: [id number] Patient: ELIUD CROFT JOB #: [id number] PSYCHIATRIC ASSESSMENT Page 1 of 1 X Ivette Eddy MD X PSYCHIATRIC ASSESSMENT
--- NOTE | ~2017-05-21 | PN ---
Unit #: [id number] #: [id number] Patient: ELIUD CROFT [id number] [facility] [address] [place] [address] [id number] MR#: [id number] NAME: ELIUD CROFT ROOM: P255 Age: 25 Sex: M Admission Date: 05/22/2017 : 07/14/1991 Attending Physician: Ivette Eddy M.D. Admitting Physician: Ivette Eddy M.D. Primary Care Physician: Generic Doctor Not In System [facility] PROGRESS NOTES DATE 05/25/2017 DISCUSSION Mr. Croft is a 25-year-old white male who was seen today and chart was reviewed and case was discussed with the staff. Doing fairly well though has been rather seclusive to himself. Meanwhile, he has been taking the medications and tolerating them fairly well with no reported side effects. MENTAL STATUS EXAMINATION Young white male who was casually dressed with fair personal hygiene and appears to be in no acute distress or discomfort. He was awake and alert on interaction with intact orientation. His mood was anxious with congruent affect. His speech is slow and goal-directed. He denies any suicidal or homicidal ideation. He denies auditory or visual hallucinations. His insight and judgement remains slightly impaired. TREATMENT PLAN 1. Will continue on his current medications and treatment protocol. Will monitor his response to the medications and make further adjustments as needed. 2. Will continue to follow up. Dictated by... Lillie Boogie/brady TD: 05/25/2017 22:40 JOB #: [id number] Unit #: [id number] #: [id number] Patient: ELIUD CROFT PROGRESS NOTES Page 1 of 1 X Ivette Eddy MD PROGRESS NOTE
--- NOTE | ~2017-05-21 | PN ---
Unit #: [id number] #: [id number] Patient: ELIUD CROFT [id number] [facility] [address] [place] [address] [id number] MR#: [id number] NAME: ELIUD CROFT ROOM: P255 Age: 25 Sex: M Admission Date: 05/22/2017 : 07/14/1991 Attending Physician: Ivette Eddy M.D. Admitting Physician: Ivette Eddy M.D. Primary Care Physician: Generic Doctor Not In System [facility] PROGRESS NOTES DATE May 23, 2017 DISCUSSION Mr. Croft is a 25-year-old white male, who was seen today and chart was reviewed and the case was discussed with the staff. He has been anxious, withdrawn, and seclusive to himself with blunted affect and minimal interaction. Meanwhile, he has been taking the medications and tolerating them fairly well with no reported side effects. MENTAL STATUS EXAMINATION Young white male, who was casually dressed with fair personal hygiene and appears to be in no acute distress or discomfort. He was awake and alert on interaction with intact orientation. His mood is anxious with a congruent affect. He denies any suicidal or homicidal ideations. His insight and judgment remain slightly impaired. TREATMENT PLAN 1. We will continue him on his current medications and treatment protocol, and will monitor his response to the medications, and make further adjustments as needed. 2. We will continue to followup. Dictated by... Lillie Boogie/samuel TD: 05/24/2017 12:16 JOB #: [id number] Unit #: [id number] #: [id number] Patient: ELIUD CROFT [facility] PROGRESS NOTES Page 1 of 1 X Ivette Eddy MD X PROGRESS NOTE
[2017-05-23 12:41] LABS: ALBUMIN SERUM 3.8 g/dL (3.5-5.0); BILIRUBIN,TOTAL 0.5 mg/dL (0.2-2.0); BUN/CREATININE RATIO 23.33; CALCIUM SERUM 9.2 mg/dL (8.4-10.2); CREATININE SERUM 0.6 mg/dL (0.6-1.4); GLOM FILT RATE Estimated 140.8 mL/min (>60); POTASSIUM 4.7 mmol/L (3.5-5.1); PROTEIN TOTAL SERUM 6.2 g/dL (6.0-8.3)
== END 2017-05-26 09:45 | disposition home or self-care (01) | DRG 885 ==
LOC: P2L 05-22 03:20 → EDBD 05-26 09:45 → P2L 05-26 09:45
PROVIDERS: Psychiatry & Neurology Psychiatry
DX: F25.0 Schizoaffective disorder, bipolar type (principal); R45.851 Suicidal ideations
CPT/HCPCS: 80053; 80164; 82140

== ENCOUNTER 2017-05-27 15:00 | Inpatient (IN) | payer OTHER ==
[~2017-05-27] VITALS: Ht 170.2 cm; Wt 73.0 kg
--- NOTE | ~2017-05-27 | HP ---
Unit #: [id number] #: [id number] Patient: ELIUD RIOS [id number] [place] [address] [id number] MR#: [id number] NAME: ELIUD RIOS ROOM: P121 Age: 26 Sex: M Admission Date: 05/27/2017 : 1990 Attending Physician: Ivette Eddy M.D. Admitting Physician: Ivette Eddy M.D. Primary Care Physician: Generic Doctor Not In System HISTORY AND PHYSICAL Eliud is a 26 year old who was admitted and discharged within the first 24 hours. He was not seen for an H and P. Dictated by... Vanessa Victor P.A.-C. for Lillie Moreira/brady TD: 05/28/2017 18:25 JOB #: [id number] HISTORY AND PHYSICAL Page 1 of 1 X Vanessa Victor HISTORY AND PHYSICAL
--- NOTE | ~2017-05-27 | PA ---
Unit #: [id number] #: [id number] Patient: ELIUD HAM [id number] [facility] [address] [place] [address] [id number] MR#: [id number] NAME: ELIUD HAM ROOM: P121 Age: 26 Sex: M Admission Date: 05/27/2017 : 1990 Date of Assessment: 05/28/2017 Attending Physician: Ivette Eddy M.D. Admitting Physician: Ivette Eddy M.D. Primary Care Physician: Generic Doctor Not In System PSYCHIATRIC ASSESSMENT DATE OF SERVICE 05/28/2017 IDENTIFYING DATA Mr. Ham is a 26-year-old single white male, who is a resident of [place], [place], and is very well known to me from previous encounter with multiple hospitalizations and was just discharged from my care a day before and brought himself back to the emergency room at [facility]. CHIEF COMPLAINT "Suicidal ideations and I'm going to shoot myself and I've access to guns." HISTORY OF PRESENT ILLNESS Mr. Ham is a 26-year-old white male with a history of chronic mental illness, who has a history of poor compliance with all form of treatments and he does not come to the outpatient program neither to fill his prescription after discharge from the hospital. Even when he comes to the hospital, he just eats and sleeps and does not participate in any treatment-related activities and laying lazy, comes right back to the hospital and once again brought himself to the [facility] reporting suicidal ideation with plan to shoot himself with a gun and that he has access to gun, although I do not believe he has any such access at all; however, he was making those allegations and also reporting hallucinations and delusions, and seeing angels and demons and aliens abducting him and was exhibiting very bizarre behavior, and as such, he was seen to be a danger to self and therefore recommendation for inpatient level of care for safety and stabilization was made and the patient was transferred to us. SUBSTANCE ABUSE HISTORY The patient denies any alcohol or drug abuse. PAST PSYCHIATRIC HISTORY The patient has had a [facility] and carries a diagnosis of schizoaffective disorder, and he is currently on Depakote and Seroquel, and due to his history of poor compliance, I have also started him on long-acting injectable Haldol Decanoate during his previous hospitalization. PAST MEDICAL HISTORY No acute or chronic medical illnesses. Unit #: [id number] #: [id number] Patient: ELIUD HAM ALLERGIES Tegretol. PERSONAL AND SOCIAL HISTORY A 26-year-old white male, who reports that he is single and unemployed. He reports having poor social support system, though his mother stated that she is the legal guardian. MENTAL STATUS EXAMINATION Young white male, who was casually dressed with fair personal hygiene, appears to be in no acute distress or discomfort. He was awake and alert on interaction with intact orientation. His mood was anxious with a congruent affect. His speech was slow and restricted in content. His thought processes were disorganized with some looseness of associations, flight of ideas, paranoid ideations, auditory and visual hallucinations, and suicidal ideations. His insight and judgment remained significantly impaired. DIAGNOSTIC IMPRESSION Psychiatric: Schizoaffective disorder, bipolar type, most recent episode depressed, recurrent, moderate, with psychosis. Medical: None. Stressors: Moderate psychosocial stressors. TREATMENT PLAN 1. The patient has presented with a history of chronic mental illness and has been decompensating and will need inpatient hospitalization for safety and stabilization. We will start him back on his home medications. We will adjust the medications and monitor response. 2. Supportive therapy was provided to the patient. 3. Safe, structured, and nourishing environment will be provided. ESTIMATED LENGTH OF STAY 5 to 7 days. ABILITY TO HELP SELF Limited. WILLINGNESS TO HELP SELF The patient appears to be willingness to help self. STRENGTHS 1. Communicative. 2. Cooperative. PROBLEMS 1. Chronic dysphoric symptoms. 2. Poor social support system. DISCHARGE CRITERIA This will be contingent upon the patient's ability to show resolution of his psychosis and his ability to stay safe to himself, particularly after discharge from the hospital. Dictated by... Unit #: [id number] #: [id number] Patient: ELIUD HAM Lillie Boogie/maximus TD: 05/28/2017 08:08 JOB #: [id number] PSYCHIATRIC ASSESSMENT Page 1 of 1 X Ivette Eddy MD PSYCHIATRIC ASSESSMENT
== END 2017-05-28 17:52 | disposition home or self-care (01) | DRG 885 ==
LOC: EDBD 15:00 → P1S 18:22
DX: F31.5 Bipolar disorder, current episode depressed, severe, with psychotic features (principal); Z91.19 Patient's noncompliance with other medical treatment and regimen

== ENCOUNTER 2017-06-04 06:57 | Inpatient (IN) | payer OTHER ==
[~2017-06-04] VITALS: Ht 170.2 cm; Wt 72.6 kg
--- NOTE | ~2017-06-04 | HP ---
Unit #: [id number] #: [id number] Patient: ELIUD RIOS [id number] [facility] [address] [place] [address] [id number] MR#: [id number] NAME: ELIUD RIOS ROOM: P122 Age: 26 Sex: M Admission Date: 06/04/2017 : 1990 Attending Physician: Ivette Eddy M.D. Admitting Physician: Ivette Eddy M.D. Primary Care Physician: Generic Doctor Not In System HISTORY AND PHYSICAL Eliud is a 26 year old admitted to [address] [place] [address] with depression and verbalizing wanting to hurt himself. He has had numerous admissions to this facility. Patient was seen and H and P dated 05/22/17 was reviewed. This is current. No changes. Please see H and P dated 05/22/17. Dictated by... Vanessa Victor P.A.-C. for Lillie Moreira/brady TD: 06/04/2017 22:10 JOB #: [id number] HISTORY AND PHYSICAL Page 1 of 1 X Vanessa Victor HISTORY AND PHYSICAL
--- NOTE | ~2017-06-04 | TN ---
Unit #: [id number] #: [id number] Patient: ELIUD HAM [id number] [facility] [address] [place] [address] [id number] MR#: [id number] NAME: ELIUD HAM ROOM: P122 Age: 26 Sex: M Admission Date: 06/04/2017 : 1990 Discharge Date: 06/05/2017 Attending Physician: Ivette Eddy M.D. Primary Care Physician: Generic Doctor Not In System LOC TRANSFER NOTE IDENTIFYING DATA Eliud Ham is a 26-year-old single white male, who is very well known to us from previous multiple encounters and was just discharged from my care a week ago and brought himself back to the hospital as a transfer from [facility]. CHIEF COMPLAINT "Depression and suicidal thoughts." HISTORY OF PRESENT ILLNESS Mr. Eliud Ham is a 26-year-old white male with history of mood disorder, who is very well known to us from previous multiple encounters and has been a frequent flyer to hospitalization and keeps coming to the hospital with the same complaint that he has been having suicidal thoughts and hearing voices. He has never attempted any suicide or engaging in self-harming behavior and when he comes to the hospital, he just eats and sleeps and then leaves and does not follow up with any treatment recommendation that he does not come to the outpatient treatment program and does not even fill his prescription, and just brings himself to the hospital. Last week, he was in the hospital. His mother called stating that she has arranged a bus ticket for him to go to a care home in [place], [place], and he was transferred there and he got out there and took himself to [facility] in [place]. After he called the EMS from the [facility] complaining of back pain, however, when he came to the ER, he then changed the story and stated that he was having auditory and visual hallucinations and suicidal thoughts and plan and that after he left [facility] a week ago, he has experienced the of his friend, triggering thoughts of killing himself with a plan to shoot himself with a gun; however, he does not have any access to gun and has been living in a stable housing in [place], [place] and as such, did not appear to be a reliable historian. If anything appears that he has been engaging in malingering behavior on regular basis with secondary gain of coming to the hospital. SUBSTANCE ABUSE HISTORY The patient denies any alcohol or drug abuse. PAST PSYCHIATRIC HISTORY The patient has had history of psychiatric treatment at [facility] and several other places, and has been diagnosed and treated for mood disorder and psychosis and has been on combination of psychotropic medications including Depakote and Seroquel and we have also been given him Haldol Decanoate primarily due to history of poor compliance with Unit #: [id number] #: [id number] Patient: ELIUD HAM medication, however, he still does not follow up his treatment recommendations after being discharged from the hospital. PAST MEDICAL HISTORY No acute or chronic medical illnesses. PERSONAL AND SOCIAL HISTORY A 26-year-old white male, who reports that he is single, unemployed, and lives and has been essentially homeless and has poor social support system. MENTAL STATUS EXAMINATION Young white male, who was casually dressed with fair personal hygiene, appears to be in no acute distress or discomfort. He was awake and alert on interaction with intact orientation to time, place, and person. His mood was anxious and depressed with a congruent affect. Denies any suicidal or homicidal ideations and also denies any auditory or visual hallucinations. His insight and judgment remain significantly impaired. DIAGNOSTIC IMPRESSION Psychiatric: Schizoaffective disorder, bipolar type, most recent episode depressed, recurrent, moderate, with psychosis. Medical: None. Stressors: Moderate psychosocial stressors. TREATMENT PLAN The patient has presented with a history of mood disorder. However, he has history of multiple hospitalizations and hospitalization has not been seemed to be beneficial or effective and appears that he has been engaging in malingering behavior and hospitalization has become rewarding behavior and as such, we will recommend discouraging such behavior and discharging him in the hospital and encouraged him to come to the outpatient treatment program and stay continuity of care on an outpatient basis. DISCHARGE CONDITION Stable. PROGNOSIS Fair. Dictated by.Lillie Rodas/amximus TD: 06/06/2017 06:21 JOB #: [id number] LOC TRANSFER NOTE Page 1 of 1 X Ivette Eddy MD LOC TRANSFER NOTE
== END 2017-06-05 18:00 | disposition home or self-care (01) | DRG 885 ==
LOC: P1S 09:46
DX: F25.0 Schizoaffective disorder, bipolar type (principal); Z59.0 Homelessness